=== PATIENT | female | born 1930 | race Caucasian/White ===

== ENCOUNTER 2017-06-16 10:10 | Observation (INO) ==
[2017-06-16] MEDS ORDERED: MIDAZOLAM 2mg/2ml INJECTION IVP ONE (10:22)
[2017-06-16] MEDS ORDERED: FentaNYL 100 MCG/2 ML INJECTION IVP ONE (10:22)
[2017-06-16] MEDS ORDERED: SALINE FLUSH 10ml SYRINGE IV ONE (10:22)
[2017-06-16] MEDS ORDERED: SALINE FLUSH 10ml SYRINGE ONE (10:46)
[2017-06-16] MEDS ORDERED: DiltiaZEM 25 MG/5 ML INJECTION IVP ONE (11:34)
[2017-06-16] MEDS ORDERED: DiltiaZEM Drip 125 MG in NS 100 ML IV SCH (11:45)
[2017-06-16] MEDS: APIXABAN 5 MG TABLET PO SCH ×2 (11:59→21:34)
--- NOTE | 2017-06-16 12:05 | XRay Report ---
Indication: AFib RVR XR chest 1V: Comparison: None Technique: Single AP portable upright chest Findings: Patient shows heart size is mildly prominent although central vascularity is not congested. Mediastinum is not widened. Patient does show a hiatal hernia behind the heart of moderate size. Lungs are clear. No acute bony findings identified. Impression: 1. Mild cardiac prominence without congestive changes. 2. Moderate-sized hiatal hernia. 3. No acute pulmonary findings. .
[2017-06-16] MEDS ORDERED: MIDAZOLAM 2mg/2ml INJECTION IM PRN (14:50)
[2017-06-16] MEDS ORDERED: FentaNYL 100 MCG/2 ML INJECTION IVP PRN (14:50)
[2017-06-16] MEDS ORDERED: PROMETHAZINE 25 MG INJECTION IVP PRN (15:02)
[2017-06-16] MEDS ORDERED: MAG-AL + SIM ORAL LIQUID 30ml PO PRN (15:02)
[2017-06-16] MEDS ORDERED: LORazepam 1 MG TABLET PO PRN (15:02)
[2017-06-16] MEDS ORDERED: NITROGLYCERIN 0.4 MG SUBLINGUAL TABLET SL PRN (15:02)
[2017-06-16] MEDS ORDERED: BISACODYL 10 MG SUPPOSITORY RECTALLY PRN (15:02)
[2017-06-16] MEDS ORDERED: ACETAMINOPHEN 500 MG TABLET PO PRN (15:02)
[2017-06-16] MEDS ORDERED: METOCLOPRAMIDE 10mg/2ml INJECTION IVP PRN (15:02)
--- NOTE | 2017-06-16 16:14 | Transesophageal Echocardiogram ---
TRANSESOPHAGEAL ECHOCARDIOGRAM AND CARDIOVERSION DATE OF PROCEDURE June 16, 2017 REFERRING PHYSICIAN Ankur Mary, DO INDICATIONS The patient is a pleasant 86-year-old lady who was admitted with atrial fibrillation and rapid ventricular rate of unknown duration and was referred for further evaluation by transesophageal echocardiogram to rule out intracardiac thrombus prior to cardioversion. INFORMED CONSENT Informed consent was obtained after explaining the procedure and the potential risks to the patient who agreed to proceed with the procedure. PROCEDURE 1. Transesophageal echocardiogram. 2. DC cardioversion. TECHNIQUE Conscious sedation was performed using Versed and fentanyl. Cetacaine spray was used for pharyngeal anesthesia. Probe was advanced into the esophagus and stomach and images were obtained in multiple planes. Left atrium is dilated. Left ventricle end-diastolic dimension is normal. Left ventricle wall thickness is normal. LV systolic function is normal with ejection fraction of 65%. Right atrium is normal. Right ventricle is normal. Mitral valve is morphologically normal with moderate mitral regurgitation. Aortic valve is a trileaflet structure with fibrocalcific changes with no stenosis. Mild to moderate aortic insufficiency is present. Tricuspid valve shows moderate tricuspid regurgitation. Pulmonary valve shows trace of pulmonary insufficiency. There is no pericardial effusion. There is no thrombus in left atrium, left atrial appendage or left ventricle. Agitated saline was injected which showed no evidence of [id number]-[id number] shunt. Descending thoracic aorta appears to be free of significant atherosclerosis. IMPRESSION 1. Normal LV systolic function with ejection fraction of about 65%. 2. No intracardiac thrombus or mass. 3. Left atrial dilation. 4. Moderate mitral regurgitation. 5. Aortic sclerosis with mild to moderate aortic insufficiency. 6. Moderate tricuspid regurgitation. 7. Trace of pulmonary insufficiency. 8. No evidence of zrche-st-jwfh shunt using agitated saline. PLAN Will proceed with cardioversion. After reviewing the images we decided to proceed with cardioversion. Anterior- posterior Zoll pads were applied. 360 joules of energy were delivered in synchronized manner and patient converted from atrial fibrillation to sinus rhythm. She tolerated the procedure well with no complications. IMPRESSION 1. Successful DC cardioversion of atrial fibrillation to sinus rhythm. PLAN Will keep her on anticoagulation and start antiarrhythmics to maintain sinus. [facility]
[2017-06-16] MEDS: **POM**ASPIRIN 81 MG CHEWABLE TABLET PO SCH (16:18)
[2017-06-16] MEDS: FLECAINIDE 50 MG TABLET PO SCH ×2 (16:18→21:34)
[2017-06-16] MEDS: MAGNESIUM OXIDE 400 MG PO SCH (16:19)
[2017-06-16] MEDS: RANITIDINE 150 MG PO SCH (21:34)
[2017-06-17] MEDS ORDERED: FERROUS SULFATE 325 MG PO SCH (08:00)
[2017-06-17 08:56] VITALS: BP 118/85; PULSE 79; RESP 18; TEMP 95.8; O2SAT 94
[2017-06-17] MEDS ORDERED: VIT D PO SCH (09:00)
[2017-06-17] MEDS ORDERED: CALCIUM CARBONATE PO SCH (09:00)
[2017-06-17] MEDS ORDERED: CALCIUM PO SCH (09:00)
[2017-06-17] MEDS ORDERED: [UNRECOGNIZED DRUG - OTHER] PO SCH (09:00)
[2017-06-17] MEDS ORDERED: VITAMIN D3 PO SCH (09:00)
[2017-06-17] MEDS ORDERED: [UNRECOGNIZED DRUG - OTHER] PO SCH (09:00)
[2017-06-17] MEDS ORDERED: MIRTAZAPINE 15 MG PO SCH (09:00)
[2017-06-17] MEDS: **POM**ASPIRIN 81 MG CHEWABLE TABLET PO SCH (10:05)
[2017-06-17] MEDS: RANITIDINE 150 MG PO SCH (10:06)
[2017-06-17] MEDS: SUCRALFATE 1 GM PO SCH ×2 (10:09→10:27)
[2017-06-17] MEDS: MAGNESIUM OXIDE 400 MG PO SCH (10:11)
[2017-06-17] MEDS: FLECAINIDE 50 MG TABLET PO SCH (10:13)
[2017-06-17] MEDS: APIXABAN 5 MG TABLET PO SCH (10:13)
[2017-06-17] MEDS ORDERED: SUCRALFATE 1 GM PO SCH (11:30)
--- NOTE | 2017-06-17 11:38 | Discharge Instructions ---
<Laure Vargas - Last Filed: 06/17/17 17:24> Discharge Plan - Med Rec/Dispo Referrals/Follow Up: Michael Nash MD [Physician] - 07/23/17 3:30 pm Lalitha Instructions: A-fib (Atrial Fibrillation) (DC) Prescriptions: New Apixaban [Eliquis] 5 mg PO BID #60 tablet Flecainide [Tambocor] 50 mg PO Q12HR #60 tablet Continue Aspirin 81 mg PO DAILY #0 Calcium Carbonate/Vitamin D3 (Caltrate 600 + D Chewable Tab) 1 each PO DAILY #0 Sucralfate 1 tab PO DAILY #90 Magnesium Oxide [Magnesium] 2 tab PO DAILY Folic Acid/Multivit-Min/Lutein [Centrum Silver Chewable Tablet] 1 tab PO DAILY #0 raNITIdine HCl [Ranitidine HCl] 1 tab PO BID #60 Mirtazapine 1 tab PO DAILY #30 Ferrous Sulfate [Iron] 1 tab PO DAILY #0 - Disposition 01 Discharged Home, Self-Care <Michael Nash - Last Filed: 06/18/17 13:54> Discharge Plan - Med Rec/Dispo - Attestation Attestation Narrative: 06/18/17 13:53 Recommendation After examining the patient I agree with the above assessment. I am involved in the formulation of the patient's plan of care.
== END 2017-06-17 14:53 | disposition home or self-care (01) ==
LOC: CCU → MED 06-17 07:53
PROVIDERS: ADMIT Internal Medicine Cardiovascular Disease; ATTEND Internal Medicine Cardiovascular Disease

== ENCOUNTER 2017-10-05 21:17 | Inpatient (IN) ==
--- NOTE | 2017-10-05 21:45 | Emergency Department Report ---
Weakness HPI - General Stated complaint: low hemaglobin Time Seen by Provider: 10/05/17 21:24 Source: patient, family, old records reviewed, other (Physician) Mode of arrival: ambulatory Limitations: no limitations - History of Present Illness HPI Narrative: 87yo woman presented to the ER by her son for evaluation of weakness and anemia. Pt was seen by her PCM this AM for evaluation of progressive dyspnea. Labs were ordered, but did not result until late this evening. On evaluation, pts Hb was 5.7; pt and son were contacted and referred to the ER for evaluation/ admission for treatment. Per pts son, pt has been progressively dyspneic over the last 3-4 weeks. Had labs 3 mos ago that were normal. MD Complaint: lack of energy Onset (ago): week(s) (3) Duration: constant Location: generalized Severity: moderate Relieving factors: none Exacerbating factors: movement, exertion Associated symptoms: denies other symptoms - Related Data Home Medications Medication Instructions Recorded Confirmed Aspirin 81 mg PO DAILY #0 10/14/12 10/05/17 Calcium Carbonate/Vitamin D3 1 each PO DAILY #0 10/14/12 10/05/17 (Caltrate 600 + D Chewable Tab) Folic Acid/Multivit-Min/Lutein 1 tab PO DAILY #0 12/31/12 10/05/17 [Centrum Silver Chewable Tablet] Ferrous Sulfate [Iron] 1 tab PO DAILY #0 09/12/15 10/05/17 Mirtazapine 1 tab PO DAILY #30 09/12/15 10/05/17 raNITIdine HCl [Ranitidine HCl] 1 tab PO BID #60 09/12/15 10/05/17 Magnesium Oxide [Magnesium] 2 tab PO BID 06/16/17 10/05/17 apixaban (Eliquis)5 mg tablet 5 mg PO BID 06/22/17 10/05/17 flecainide 50 mg tablet 50 mg PO Q12H 06/22/17 10/05/17 Previous Rx's Medication Instructions Recorded sucralfate 1 gram tablet 1 g PO HS #90 tab 06/29/17 Allergies Allergy/AdvReac Type Severity Reaction Status Date / Time benzocaine Allergy Unknown swell Verified 10/05/17 22:13 ciprofloxacin Allergy Unknown LEGS GOT Verified 10/05/17 22:13 STIFF ciprofloxacin HCl Allergy Unknown LEGS GOT Uncoded 10/05/17 22:13 STIFF EVISTA Allergy Uncoded 10/05/17 22:13 Review of Systems All systems: reviewed and negative except as stated Constitutional: Reports: as per HPI, weakness. Denies: fever, chills, weight change, night sweats PFSH Patient Stated Medical History Cardiac Arrhythmia Yes: A-FIB RVR SUDDEN ONSET Sleep Apnea No Gastroesophageal Reflux Yes Disease Hx Incontinence Yes: WEARS A PAD Other Yes: BLADDER CANCER Post Menopausal Yes Clinic Medical History Bladder cancer (Acute Medical) Surgical History: APPENDECTOMY . HYSTERECTOMY AND CYSTOSCOPY 02/1076. GALLBLADDER. CATARACT. HEART CATH- 2005. EYE LASER 03/2017 Family History: Family History Mother Heart failure Daughter Breast cancer Father Cancer Sister No problems noted. - Social History Smoking status: Never smoker Physical Exam - Limitations Limitations: no limitations - General General appearance: alert, in no apparent distress, obese - Normal Exams: Head:: Normocephalic without trauma Eyes:: Pupils are PERRLA w/ EOMI, No scleral icterus, irritation, or foreign bodies noted ENMT:: No facial trauma, nasal exudates, pharyngeal erythema, or exudates are noted Neck:: Full range of motion, without adenopathy Chest/Respirations:: Clear all zhu, with good airflow, and symmetry bilaterally Cardiovascular:: Regular rate and rhythm, without murmur or gallop, Pulses 2+ all extremities, capillary refill, <2 seconds all extremities Abdomen:: Bowel sounds positive, soft, non-tender, non-distended, no hepatosplenomegaly, masses or bruits noted Lymphatic:: No lymphadenopathy Musculoskeletal:: No tenderness, or deformity noted, good range of motion Integumentary:: No rashes, hives, or bruising noted Neurological:: Patient is alert, and oriented Psychiatric:: Patient exhibits, appropriate attention - Skin Skin exam: Present: warm, dry, intact, pallor. Absent: rash Course - Consultations Consultation #1: Maximiliano Telemed: Will admit for treatment and further eval. Time: 22:20 Vital Signs Temperature 98.0 F 10/05/17 21:17 Pulse Rate 99 10/05/17 21:17 Respiratory Rate 18 10/05/17 21:17 Blood Pressure 136/60 10/05/17 21:17 Pulse Oximetry 95 10/05/17 21:17 Temperature 98.0 F 11/27/17 21:17 Pulse Rate 99 10/05/17 21:17 Respiratory Rate 18 10/05/17 21:17 Blood Pressure 136/60 10/05/17 21:17 Pulse Oximetry 95 10/05/17 21:17 Weakness - Differential Diagnosis Differential diagnosis: Likely: acute myocardial infarction, anemia, hypoglycemia, hypothyroidism, rhabdomyolysis - Medical Records Attestation: I reviewed the patient's medical records. - Lab Data Attestation: I reviewed the patient's lab results. Result diagrams: 10/05/17 21:50 Lab Results 10/05/17 10/05/17 10/05/17 Range/Units 21:50 21:50 21:50 WBC 6.5 (4.5-11.0) T/MM3 RBC 1.96 L (4.00-5.20) M/MM3 Hgb 5.6 L* (12-16) GM/DL Hct 19.3 L (36-46) % MCV 98.5 (80-100) UM3 MCH 28.6 (26-34) UUG MCHC 29.0 L (31-37) GM/DL RDW Std Deviation 45.8 (36.9-50.2) FL Plt Count 373 (130-400) T/MM3 MPV 9.6 (9.4-12.4) UM3 Troponin I < 0.012 (0-0.12) ng/ml Specimen Hemolysis < 15 (0-25) Crossmatch (AHG) See Detail - EKG Data EKG #1 EKG attestation: Yes: I reviewed and interpreted this EKG. EKG shows normal: sinus rhythm, axis, QRS complexes, ST-T waves Rate: normal Evant/QRS: IVCD Disposition Clinical Impression: Anemia Qualifiers: Anemia type: unspecified type Qualified Code(s): D64.9 - Anemia, unspecified Disposition: To OBS [facility] Print Language: Turkish Condition: Improved Prescriptions: No Action Aspirin 81 mg PO DAILY #0 Calcium Carbonate/Vitamin D3 (Caltrate 600 + D Chewable Tab) 1 each PO DAILY #0 Magnesium Oxide [Magnesium] 2 tab PO BID Folic Acid/Multivit-Min/Lutein [Centrum Silver Chewable Tablet] 1 tab PO DAILY #0 raNITIdine HCl [Ranitidine HCl] 1 tab PO BID #60 Mirtazapine 1 tab PO DAILY #30 Ferrous Sulfate [Iron] 1 tab PO DAILY #0 apixaban (Eliquis)5 mg tablet 5 mg PO BID sucralfate 1 gram tablet 1 g PO HS #90 tab flecainide 50 mg tablet 50 mg PO Q12H Time of Disposition: 22:25 - Seen By: physician
[2017-10-05] MEDS: SALINE FLUSH 10ml SYRINGE IVF PRN (21:50)
[2017-10-05] MEDS ORDERED: ONDANSETRON 4 MG/2 ML INJECTION IVP PRN (23:14)
[2017-10-05 23:27] VITALS: BMI 28.0
[2017-10-05] MEDS: NS 1,000 ML IV SCH (23:58)
--- NOTE | 2017-10-06 00:03 | History & Physical Report ---
History of Present Illness Date: 10/06/17 Chief complaint: weak HPI: Please note that the patient was seen via telemedicine with nursing assistance on 10/05/2017. Ms. Graham is an 87yo woman with h/o permanent afib, HTN, GERD and PUD but no CAD , CVA or DM2. She present with progressive weakness over the last couple of weeks with CABAN and palpitation with activity. NO chest pain on abdominal pain. No recent medication changes. Clinic lab with anemia and sent to the ED. No stool changes. Never had endoscopy per son at the bedside who is an RN--PUD diagnosed previously by symptoms. No other NSAIDs noted. [facility] Patient Stated Medical History Cardiac Arrhythmia Yes: A-FIB RVR SUDDEN ONSET Sleep Apnea No Gastroesophageal Reflux Yes Disease Hx Incontinence Yes: WEARS A PAD Other Yes: BLADDER CANCER Post Menopausal Yes Clinic Medical History Anemia (Acute Medical) Bladder cancer (Acute Medical) Surgical History: APPENDECTOMY . HYSTERECTOMY AND CYSTOSCOPY 02/1076. GALLBLADDER. CATARACT. HEART CATH- 2005. EYE LASER 03/2017 Family History: Family History Mother Heart failure Daughter Breast cancer Father Cancer Sister No problems noted. - Social History Smoking status: Never smoker Substance use type: does not use Housing: house Medications Home Medications Medication Instructions Recorded Confirmed Type Aspirin 81 mg PO DAILY #0 10/14/12 10/05/17 History Calcium Carbonate/Vitamin D3 1 each PO DAILY #0 10/14/12 10/05/17 History (Caltrate 600 + D Chewable Tab) Folic Acid/Multivit-Min/Lutein 1 tab PO DAILY #0 12/31/12 10/05/17 History [Centrum Silver Chewable Tablet] Ferrous Sulfate [Iron] 1 tab PO DAILY #0 09/12/15 10/05/17 History Mirtazapine 1 tab PO HS #30 09/12/15 10/06/17 History raNITIdine HCl [Ranitidine HCl] 1 tab PO BID #60 09/12/15 10/05/17 History Magnesium Oxide [Magnesium] 2 tab PO BID 06/16/17 10/05/17 History apixaban (Eliquis)5 mg tablet 5 mg PO BID 06/22/17 10/05/17 History flecainide 50 mg tablet 50 mg PO Q12H 06/22/17 10/05/17 History Allergies Allergy/AdvReac Type Severity Reaction Status Date / Time benzocaine Allergy Unknown swell Verified 10/05/17 22:13 ciprofloxacin Allergy Unknown LEGS GOT Verified 10/05/17 22:13 STIFF ciprofloxacin HCl Allergy Unknown LEGS GOT Uncoded 10/05/17 22:13 STIFF EVISTA Allergy Uncoded 10/05/17 22:13 Exam Vital Signs: Temperature 95.8 F L 10/05/17 23:12 Pulse Rate 97 10/05/17 23:12 Respiratory Rate 16 10/05/17 23:12 Blood Pressure 154/71 H 10/05/17 23:12 Pulse Oximetry 98 10/05/17 23:12 Telemetry Rhythm: A-fib Height/Weight/BMI: Height 1.57 m Weight 69.7 kg Body Mass Index 28.0 - Constitutional Present: no acute distress - Routine HEENT Exam Eye: Present: EOMI - Routine Respiratory Exam Present: CTA bilaterally. Absent: accessory muscle use, respiratory distress - Routine Cardiovascular Exam Absent: RRR Comments: irr irr with no murmur, no edema, borderline tachycardic - Routine Abdominal Exam Present: soft, normoactive bowel sounds. Absent: tenderness - Routine Extremities Exam Absent: cyanosis, clubbing - Routine Skin Exam Present: intact - Routine Neurological Exam Present: alert, oriented X3, CN II-XII intact Results - Labs CBC & Chem 7: 10/06/17 07:05 10/06/17 07:05 Assessment and Plan (1) Normocytic anemia Current visit: Yes Status: Acute (2) Atrial fibrillation Current visit: Yes Status: Acute (3) GERD (gastroesophageal reflux disease) Current visit: Yes Status: Acute Assessment and Plan: 1. Normocytic anemia, symptomatic--2 units PRBCs, iron, TIBC, other labs with PPI and will need EGD most likely with 2. 2. Permanent afib on asa and eliquis which will be held. Continue Flecainide. 3. GERD and possible PUD hx. As above. No NSIADs. 4. DJD 10/06/2017-Dr. Toure I have reviewed the H&P above and agree. Please see my additions below. Chief complaint: Shortness of breath and palpitations with activity History of present illness: The patient is a pleasant 87-year-old female who states that she has had palpitations and shortness of breath with activity for at least the past couple of weeks. She has history of A. fib and underwent AYDEN and possible cardioversion back in June 2017. At that time she was started on aspirin and eliquis. She has had dark stools but is on iron. She denies any nausea or vomiting. She denies any abdominal pain. She has a history of possible peptic ulcer disease diagnosed by symptoms. She has been on an H2 leticia and Carafate for an unknown period of time. She does not take any NSAIDs other than an aspirin once daily. She denies any lightheadedness or chest pain. She has some right shoulder pain with movement. She's had no weight changes. She denies any fevers, chills or sweats. She states her appetite has been good. She does complain of some right shoulder pain with movement. On examination her pain is actually in the right shoulder blade area. The patient presented to her primary care office yesterday because of palpitations and shortness of breath. Hemoglobin was found to be low at 5.6. She was directed to be admitted to the hospital. She received 2 units of blood. Hemoglobin is now 8.7. Combivent some metabolic is essentially normal. In early June 2017 her hemoglobin was 11.6. She last took a look was at 6 PM yesterday. Comprehensive review of systems is negative other than the above in history of present illness. Past medical history: Reviewed from above and agree. Would add AYDEN with cardioversion in June 2017. Past surgical history: Reviewed and agree. Family history and social history review and agree. The patient lives alone. Her son Tonya is her DPOA. Medications and allergies are reviewed. Physical exam GEN-alert, oriented, no acute distress HEENT-sclera anicteric, pupils are equal, oropharynx is moist NECK-supple CV-regular rate and rhythm CHEST-clear to auscultation bilaterally ABD-soft, nontender, nondistended with positive bowel sounds -no Jaime EXT-no edema, good range of motion of the right shoulder NEURO-no focal deficits SKIN-warm and dry and without rashes Impression Anemia, likely from blood loss Probable upper GI bleed Chronic anticoagulation for atrial fibrillation Paroxysmal atrial fibrillation History of bladder cancer in remission Plan Agree with admission to inpatient status. Patient was transfused 2 units of blood and hemoglobin has improved. Will obtain every 6 hours hemoglobins. Continue on IV proton pump inhibitor twice daily. Continue nothing by mouth status. Dr. Garcia was consulted and will see the patient for possible EGD later today. Continue to hold aspirin and eliquis Recheck basic metabolic profile tomorrow SCDs for DVT prophylaxis Iron studies, B-12, folic acid Hemoccult stools DVT Prophylaxis: SCD's Hospital Course Summary Disclaimer: The visit summary below is not to be considered part of the above Progress Note.
[2017-10-06] MEDS ORDERED: NS FLUSH BAG 500ml IV PRN (00:07)
[2017-10-06] MEDS: FLECAINIDE 50 MG TABLET PO SCH ×3 (00:33→23:52)
[2017-10-06] MEDS: MIRTAZAPINE 15 MG TABLET PO SCH ×2 (00:33→20:36)
[2017-10-06] MEDS: PANTOPRAZOLE 40 MG INJECTION IVP SCH ×2 (03:31→09:05)
[2017-10-06] MEDS ORDERED: MIRTAZAPINE 15 MG TABLET PO SCH (09:00)
[2017-10-06] MEDS: ACETAMINOPHEN 500 MG TABLET PO PRN ×2 (10:27→20:59)
[2017-10-06] MEDS: NS 1,000 ML IV SCH ×2 (14:51→20:40)
--- NOTE | 2017-10-06 15:50 | Anesthesia Preoperative Report ---
Anesthesia Preoperative Record - Date and Time Date: 10/06/17 Preoperative Diagnosis: Anemia Proposed Procedure: EGD NPO Since Date: 10/06/17 NPO Since Time: 00:00 Allergies/Adverse Reactions: Allergies Allergy/AdvReac Type Severity Reaction Status Date / Time benzocaine Allergy Unknown swell Verified 10/05/17 22:13 ciprofloxacin Allergy Unknown LEGS GOT Verified 10/05/17 22:13 STIFF ciprofloxacin HCl Allergy Unknown LEGS GOT Uncoded 10/05/17 22:13 STIFF EVISTA Allergy Uncoded 10/05/17 22:13 - Vital Signs Vital Signs: Temperature 97.7 F 10/06/17 14:46 Pulse Rate 75 10/06/17 14:46 Respiratory Rate 20 10/06/17 14:46 Blood Pressure 138/64 10/06/17 14:46 Pulse Oximetry 95 10/06/17 14:46 Height and Weight: Height 5 ft 2 in Weight 70 kg Body Mass Index 28.0 - Medications Inpatient Medications: Current Medications Acetaminophen (Tylenol) 1,000 mg PO Q5H PRN PRN Reason: Discomfort Last Admin: 10/06/17 10:27 Dose: 1,000 mg Flecainide Acetate (Tambocor) 50 mg PO Q12H MINNA Last Admin: 10/06/17 12:19 Dose: 50 mg Sodium Chloride (Normal Saline) 1,000 mls @ 100 mls/hr IV .Q10H MINNA Last Admin: 10/06/17 14:51 Dose: 100 mls/hr Mirtazapine (Remeron) 15 mg PO HS MINNA Last Admin: 10/06/17 00:33 Dose: 15 mg Ondansetron HCl (Zofran) 4 mg IVP Q6H PRN PRN Reason: Nausea &/or vomiting Pantoprazole Sodium (Protonix Iv) 40 mg IVP BID MINNA Last Admin: 10/06/17 09:05 Dose: 40 mg Sodium Chloride (Iv Flush) 10 - 80 ml IVF PRN PRN PRN Reason: Flushing Last Admin: 10/05/17 21:50 Dose: 10 ml Sodium Chloride (Normal Saline) 500 ml IV PRN PRN Home Medications: Home Medications Medication Instructions Recorded Confirmed Type Aspirin 81 mg PO DAILY #0 10/14/12 10/05/17 History Calcium Carbonate/Vitamin D3 1 each PO DAILY #0 10/14/12 10/05/17 History (Caltrate 600 + D Chewable Tab) Folic Acid/Multivit-Min/Lutein 1 tab PO DAILY #0 12/31/12 10/05/17 History [Centrum Silver Chewable Tablet] Ferrous Sulfate [Iron] 1 tab PO DAILY #0 09/12/15 10/05/17 History Mirtazapine 1 tab PO HS #30 09/12/15 10/06/17 History raNITIdine HCl [Ranitidine HCl] 1 tab PO BID #60 09/12/15 10/05/17 History Magnesium Oxide [Magnesium] 2 tab PO BID 06/16/17 10/05/17 History apixaban (Eliquis)5 mg tablet 5 mg PO BID 06/22/17 10/05/17 History flecainide 50 mg tablet 50 mg PO Q12H 06/22/17 10/05/17 History Is Patient on Beta Ralf?: No - Medical History Cardiovascular: Reports: Abnormal EKG (A-Fib), Arrhythmia (A-FIB RVR SUDDEN ONSET) Gastrointestional: Reports: Gastroesophageal Reflux Disease (reports well controlled on meds) Neuro/Musculoskeletal: Denies: HX.MS.OSAR, Back Problems, Cerebrovascular Accident, Depression, Headaches, Loss of Consciousness, Muscle Weakness, Neuromuscular Disorder, Paralysis, Paresthesia, Syncope, Seizures, Other Renal/Endocrine: DENIES: Diabetes Mellitus Type 1, Diabetes Mellitus Type 2, Renal Failure, Dialysis, Thyroid Disease, Weight Loss, Weight Gain, Other Other History: DENIES: Anesthesia Reactions, Now, Blood Transfusions, Chemotherapy , Cancer, Hemophilia, Malignant Hyperthermia, Sickle Cell Disease, Other - Surgical History HEENT Surgeries: Reports: Eye Surgery Cardiac Surgeries/Treatments: Reports: Cardiac Catheterization (2006- Clean/no intervention), Other (cardioversion) GI Surgery/Treatments: Reports: Appendectomy Anesthesia Reactions: None Hx Family Anesthesia Reaction: No History of Motion Sickness: No - Social History Smoking Status: Never smoker Substance Use Type: does not use Alcohol Intake: never - Pertinent Findings Laboratory: CBC and BMP 10/06/17 13:06 10/06/17 07:05 BMP 10/06/17 07:05 Sodium 140 Potassium 3.9 Chloride 107 Carbon Dioxide 26 BUN 15.0 Creatinine 0.8 Glucose 85 Calcium 8.4 Liver Function 10/06/17 Range/Units 07:05 Total Bilirubin 0.60 (0.20-1.30) MG/DL AST 20 (14-36) U/L ALT 19 (9-52) U/L Alkaline Phosphatase 53 (38-126) U/L Albumin 3.4 L (3.5-5.0) G/DL EKG: Sinus Rhythm - Physical Exam Respiratory Exam: Present: lungs clear, bilateral breath sounds equal Cardiovascular Exam: Present: regular rate and rhythm, no murmur - Airway Assessment Mallampati Score: II TMD: 3 Fingerbreadths Neck Extension: fair Overall Assessment: no airway concerns - ASA ASA Score: 2 - Plan Anesthesia: General TIVA - Discussion Discussion: Discussed risks/options/alternatives of anesthesia and questions answered. Patient consents. Nursing pain assessment noted. Present for Discussion: children Attestation Statement: Prior to the delivery of any anesthetic medication, I examined the patient, developed the plan, obtained the patient's consent and discussed the risk and benefits of the procedure with the patient/guardian. - Additional Information Seen by Anesthesia: Yes
[2017-10-06] MEDS ORDERED: LIDOCAINE VISCOUS 2% ORAL LIQUID 15ml ONE (16:22)
[2017-10-06] MEDS ORDERED: LIDOCAINE VISCOUS 2% ORAL LIQUID 15ml PO ONE (16:50)
--- NOTE | 2017-10-06 17:27 | Procedure Note ---
- Procedure Date/Time: [id number] Surgeon: Radha ASA Score: 2 Proceure: EGD for renan assay, EGD- antrum biopsies - Postoperative EGD Diagnosis Postoperative EGD Diagnosis: Hiatal hernia (sliding), Other (Shankar ulcer) - Complications Estimated Blood Loss: See Anesthesia Record. Vital Signs: See Anesthesia and PACU record.
--- NOTE | 2017-10-06 17:30 | General Surgery Consult Note ---
Consult date: 10/06/17 Attending Physician: Kaitlin Toure MD Reason for consult: endoscopy FOR[facility] Patient Stated Medical History Cerebrovascular Accident No Paralysis No Seizures No Syncope No Cardiac Arrhythmia Yes: A-FIB RVR SUDDEN ONSET Sleep Apnea No Diabetes Mellitus Type 1 No Diabetes Mellitus Type 2 No Gastroesophageal Reflux Yes: reports well controlled on meds Disease Hx Incontinence Yes: WEARS A PAD Other Yes: BLADDER CANCER Osteoarthritis No Other Musculoskeletal No Anesthesia Reactions No Blood Transfusions No Chemotherapy No Malignant Hyperthermia No Other No Depression No Post Menopausal Yes Now No Clinic Medical History Anemia (Acute Medical) Normocytic anemia (Acute Medical) Atrial fibrillation (Acute Medical) GERD (gastroesophageal reflux disease) (Acute Medical) Bladder cancer (Acute Medical) Surgical History: APPENDECTOMY . HYSTERECTOMY AND CYSTOSCOPY 02/1076. GALLBLADDER. CATARACT. HEART CATH- 2005. EYE LASER 03/2017 Family History: Family History Mother Heart failure Daughter Breast cancer Father Cancer Sister No problems noted. - Social History Smoking status: Never smoker Medications Home Medications Medication Instructions Recorded Confirmed Type Aspirin 81 mg PO DAILY #0 10/14/12 10/05/17 History Calcium Carbonate/Vitamin D3 1 each PO DAILY #0 10/14/12 10/05/17 History (Caltrate 600 + D Chewable Tab) Folic Acid/Multivit-Min/Lutein 1 tab PO DAILY #0 12/31/12 10/05/17 History [Centrum Silver Chewable Tablet] Ferrous Sulfate [Iron] 1 tab PO DAILY #0 09/12/15 10/05/17 History Mirtazapine 1 tab PO HS #30 09/12/15 10/06/17 History raNITIdine HCl [Ranitidine HCl] 1 tab PO BID #60 09/12/15 10/05/17 History Magnesium Oxide [Magnesium] 2 tab PO BID 06/16/17 10/05/17 History apixaban (Eliquis)5 mg tablet 5 mg PO BID 06/22/17 10/05/17 History flecainide 50 mg tablet 50 mg PO Q12H 06/22/17 10/05/17 History Allergies Allergy/AdvReac Type Severity Reaction Status Date / Time benzocaine Allergy Unknown swell Verified 10/05/17 22:13 ciprofloxacin Allergy Unknown LEGS GOT Verified 10/05/17 22:13 STIFF ciprofloxacin HCl Allergy Unknown LEGS GOT Uncoded 10/05/17 22:13 STIFF EVISTA Allergy Uncoded 10/05/17 22:13 Review of Systems 10-point ROS: negative except for HPI and the following: - General General: Present: other (weakness) - Cardiovascular Cardiovascular: Present: irregular heart beat - Gastrointestinal Gastrointestinal: Present: other (see HPI) - Genitourinary Females Only: Present: other (incontinence) - Musculoskeletal Musculoskeletal: Present: joint pain - Neurological Neurological: Present: muscle weakness - Hematologic/Lymphatic Hematologic/Lymphatic: Present: easy bruising, use of blood thinners - Vital Signs Last Vital Signs Temp 97.7 F 10/06/17 14:46 Pulse 75 10/06/17 14:46 Resp 20 10/06/17 14:46 BP 138/64 10/06/17 14:46 Pulse Ox 95 10/06/17 14:46 - Laboratory Result Diagrams: 10/06/17 13:06 10/06/17 07:05 General Surgery Results - Results Labs: 10/06/17 13:06 10/06/17 07:05 Hospital Course Summary Disclaimer: The visit summary below is not to be considered part of the above Progress Note.
[2017-10-06] MEDS ORDERED: PROPOFOL 500 MG/50 ML VIAL IV ONE (17:33)
--- NOTE | 2017-10-06 17:50 | Anesthesia Postoperative Note ---
- Date and Time Date: 10/06/17 Time: 17:49 - Status Patient Participated in Evaluation: Patient Participated in Person Vital Signs: Temperature 97.2 F 10/06/17 17:30 Pulse Rate 77 10/06/17 17:45 Respiratory Rate 18 10/06/17 17:45 Blood Pressure 118/59 10/06/17 17:45 Pulse Oximetry 93 10/06/17 17:45 Respiratory Function: Airway Patent Cardiovascular Function: Regular Pulse EKG: Sinus Rhythm Mental Status: Alert and Oriented Pain Intensity: 0 Hydration: IV Infusing Complications During Recover: None Apparent - Follow-Up Instructions Instructions: Per Surgeon
--- NOTE | 2017-10-06 18:32 | Consultation ---
DATE OF CONSULTATION 10/06/2017 FINDINGS Mrs. Graham is an 87-year-old female whom I was asked to see today as a result of her finding of marked anemia upon laboratory evaluation. Upon questioning Mrs. Graham, she informs me that over the last several weeks or more she has been feeling more weak and fatigued. She states that she had noted that she was becoming more short of breath with any type of exertion. She states that she "lost all of her energy." Patient states that her son is a registered nurse and had recommended that she needed to see her physician as a result of this decompensation. After presenting to her PCP's office she was found to have marked anemia and was subsequently instructed to present to our emergency room here at [facility] for further evaluation. Upon questioning the patient, she denies any history for significant abdominal pain or discomfort. She denies any history for alcohol intake. She denies any history for significant nonsteroidal use such as aspirin or ibuprofen. The patient's son, whom I spoke with by phone this morning, informed me that his mother had been diagnosed in the past clinically with a possible ulcer and that she has been on some "antiulcer medication" in the past. Upon questioning the patient, she states that she has never undergone prior colonoscopy or EGD. She states that she has been on some iron supplementation and has noted that her stools are somewhat more dark in nature, as one would expect. PAST MEDICAL HISTORY, PAST SURGICAL HISTORY, MEDICATIONS, ALLERGIES, SOCIAL HISTORY, FAMILY HISTORY, REVIEW OF SYSTEMS Performed by my nurse practitioner, George Rome APRN. PHYSICAL EXAM GENERAL: Mrs. Graham is an elderly 87-year-old female who does not appear to be in acute distress. VITAL SIGNS: Temperature 96.0, pulse 79, respirations 16, blood pressure 137/67 , Soa2 95% on room air. HEENT: Normocephalic. Pupils are equally round and react to light and accommodation. NECK: Supple without lymphadenopathy. CHEST: Clear to auscultation bilaterally. HEART: Regular rate and rhythm. Normal S1 and S2 without gallops, murmurs or clicks. ABDOMEN: Palpation of the abdomen reveals it to be soft and nontender. I do not appreciate any evidence for hepatosplenomegaly nor abnormal masses. EXTREMITIES: Without clubbing, cyanosis, or edema. NEURO: Cranial nerves II-XII grossly intact. Patient is without focal motor or sensory deficits. LABORATORY/RADIOGRAPHIC EVALUATION The patient had a CBC yesterday through the emergency room and her hemoglobin is 5.6. She has undergone blood transfusions and her hemoglobin today is 8.7. The patient did have iron studies obtained and results are pending at time of dictation. She was found to have a Hemoccult-positive stool earlier today. ASSESSMENT 87-year-old female with associated medical comorbidities who is found to be markedly anemic upon laboratory evaluation in conjunction with heme-positive stool. PLAN I agree with current management of this patient. She has been admitted to the hospital and has undergone blood transfusions, as stated above. She is being treated empirically for peptic ulcer disease and is on IV Protonix. I would recommended at this point in time that later today we proceed with esophagogastroduodenoscopy for further evaluation to rule in or rule out an upper GI source for her anemia. The patient has been on Eliquis and it has been roughly 24 hours since her last dose. I do feel it is safe to proceed with upper endoscopy. If no marked abnormalities are noted upon upper endoscopy to explain the patient's anemia, would then recommend proceeding with colonoscopy for further evaluation. I did discuss my recommendations with the patient as well as her son, who is a registered nurse, by phone this morning. They both understood and agreed to proceed as stated above. SANDEEP
[2017-10-06] MEDS: SUCRALFATE 1gm/10ml ORAL LIQUID PO SCH ×2 (18:42→20:36)
[2017-10-07] MEDS: PANTOPRAZOLE 40 MG TABLET PO SCH (06:15)
[2017-10-07] MEDS: NS 1,000 ML IV SCH (06:15)
[2017-10-07] MEDS: SUCRALFATE 1gm/10ml ORAL LIQUID PO SCH ×4 (06:19→21:09)
--- NOTE | 2017-10-07 07:36 | Operative Note ---
DATE OF SERVICE 10/06/2017 SURGEON Power Garcia MD PREOPERATIVE DIAGNOSIS Anemia, heme-positive stools. POSTOPERATIVE DIAGNOSIS Hiatal hernia, Shankar/gastric ulcerations located at the level of the diaphragm. PROCEDURE Esophagogastroduodenoscopy with biopsies from antrum of stomach for permanent pathology as well as for GEORGINA assay via cold biopsy technique. ANESTHESIA TIVA BRIEF HISTORY/INDICATIONS Mrs. Graham is an 87-year-old female who recently presented to her primary care physician as a result of increasing shortness of breath upon exertion, increasing generalized fatigue. The patient underwent laboratory evaluation and was found be quite anemic with a hemoglobin of 5.6. The patient was subsequently sent to [facility] Emergency Room for further evaluation and admission. The patient, this morning, underwent Hemoccult card testing was found to have Hemoccult positive stool. As a result of the above indications it was recommended to the patient that she undergo esophagogastroduodenoscopy initially for evaluation of the underlying etiology for her anemia. For completeness please refer to notes included in the patient' s chart. FINDINGS Upon upper endoscopy the patient was found to have an 8-10 cm hiatal hernia. At the level of the diaphragm the patient was found to have two "blood clots" sitting upon the mucosa. Blood clots were irrigated off of the mucosa. One could see two superficial ulcerations at this location. Otherwise, the esophagus, stomach and duodenum were within normal limits. DESCRIPTION OF PROCEDURE After informed consent was obtained, the patient was brought to the endoscopy suite and placed on the table in left lateral decubitus position. Formal time- out was then completed. Next, an Olympus gastroscope was inserted in the oral hypopharynx and subsequently into the esophagus under direct visualization. Gastroscope was advanced through the esophagus, stomach, pylorus, duodenal bulb , into second portion of duodenum. Scope was slowly withdrawn. First and second portions of the duodenum were within normal limits. There was no evidence of duodenitis or ulcerations. Scope was withdrawn back to prepyloric region and antrum. Again, no marked mucosal abnormalities were noted. A J- maneuver was then performed. One could see a moderate-sized hiatal hernia. Additionally, at the level of the diaphragm/crura one could see two clots sitting upon the mucosa. Photos were obtained for documentation purposes. These blood clots were irrigated off and one could then see two superficial ulcerations. There was some minimal oozing of blood at this location but no significant bleeding was present. Scope was then allowed to straighten and advanced back into the prepyloric region. It was elected to go ahead and proceed with a few biopsies from the antrum for permanent pathology as well as for GEORGINA assay to rule in or rule out the presence of H. pylori. Scope was withdrawn back to the level of the diaphragm. One could then again see the small superficial ulcerations at this location. Scope was then advanced back into the hiatal hernia. No additional abnormalities were noted. Scope was withdrawn back to the level of the squamocolumnar junction which was about 8- 10 cm above the level of the diaphragm. Squamocolumnar junction was well demarcated with no endoscopic evidence for Whalen's metaplasia or distal esophagitis. Scope was then slowly withdrawn and the remaining esophageal mucosa was found within normal limits. The patient tolerated the procedure without difficulty and was sent back to the preop area in stable condition. SANDEEP
[2017-10-07] MEDS ORDERED: IRON - PHARMACY CONSULT MC ONE (10:10)
--- NOTE | 2017-10-07 10:17 | Progress Note ---
- Date 10/07/17 Subjective: The patient was seen this morning in her room. She ate a regular breakfast without difficulties. She walked in the halls and stated she was a little bit short of breath but not to the severity that she noticed prior to admission. She denied any lightheadedness or chest pains. She had a bowel movement today. There was no gross red blood. She is urinating okay. Objective Vital signs: Temperature 97.9 F 10/07/17 07:23 Pulse Rate 80 10/07/17 07:23 Respiratory Rate 24 10/07/17 07:23 Blood Pressure 136/65 10/07/17 07:23 Pulse Oximetry 92 10/07/17 07:23 Height/Weight/BMI: Height 1.57 m Weight 72.7 kg Body Mass Index 28.0 Comments: GEN-alert, oriented, no acute distress HEENT-anicteric, oropharynx is moist CV-regular rate and rhythm CHEST-to auscultation bilaterally ABD-soft, nontender with positive bowel sounds -no Jaime EXT-no edema NEURO-no focal deficits SKIN-warm and dry and without rashes Results - Labs CBC & Chem 7: 10/07/17 07:23 10/07/17 04:35 Labs: Laboratory Tests 10/06/17 07:05 Iron 36 L TIBC 425 % Saturation 8 L Vitamin B12 392 Folate > 20.0 H Assessment and Plan (1) Normocytic anemia Current visit: Yes Status: Acute (2) Atrial fibrillation Current visit: Yes Status: Acute (3) GERD (gastroesophageal reflux disease) Current visit: Yes Status: Acute Assessment and Plan: Impression Acute blood loss anemia-improved post 2 units of packed red cells. Iron deficiency anemia Upper GI bleed secondary to gastric ulcers Sliding hiatal hernia Chronic anticoagulation for atrial fibrillation-aspirin and eliquis are on hold Paroxysmal atrial fibrillation History of bladder cancer in remission Plan EGD on 10/06/2017 showed a sliding hiatal hernia and to gastric ulcers in the area of her hiatal hernia. Biopsies were obtained and are pending. H pylori testing is pending. Hemoglobin is 7.9 today. It was 5.6 on admission. The patient received 2 units of packed red cells on the night of admission. Increase activity as tolerated. Give IV iron today for iron deficiency Start oral B 12 for borderline low B-12 level Recheck CBC and basic metabolic profile tomorrow Possible dismissal to home tomorrow if she continues to do well. Continue to remain off of aspirin and anticoagulants due to acute GI bleed Oral PPI and Carafate initiated yesterday. DC IV fluids Discussed plans with the patient's nurse. Discussed EGD results yesterday with Dr. Garcia Hospital Course Summary Disclaimer: The visit summary below is not to be considered part of the above Progress Note. Hospital Course: 10/06/2017-Dr. Toure Impression Anemia, likely from blood loss Probable upper GI bleed Chronic anticoagulation for atrial fibrillation Paroxysmal atrial fibrillation History of bladder cancer in remission Plan Agree with admission to inpatient status. Patient was transfused 2 units of blood and hemoglobin has improved. Will obtain every 6 hours hemoglobins. Continue on IV proton pump inhibitor twice daily. Continue nothing by mouth status. Dr. Garcia was consulted and will see the patient for possible EGD later today. Continue to hold aspirin and eliquis Recheck basic metabolic profile tomorrow SCDs for DVT prophylaxis Iron studies, B-12, folic acid Hemoccult stools
[2017-10-07] MEDS: FLECAINIDE 50 MG TABLET PO SCH ×2 (11:34→23:02)
[2017-10-07] MEDS: MULTI-VITAMIN + MINERAL TABLET PO SCH (11:34)
[2017-10-07] MEDS ORDERED: NS 1,000 ML IV SCH (14:00)
--- NOTE | 2017-10-07 14:08 | Pharmacy Consult ---
Pharmacy Consult-Iron - Laboratory Information [facility] 10/06/17 10/06/17 10/06/17 07:05 07:05 07:05 Hgb 8.7 L D Cancelled Hct 28.3 L D Iron 36 L TIBC 425 % Saturation 8 L 10/06/17 10/06/17 10/07/17 13:06 18:41 01:11 Hgb 8.0 L 8.4 L 7.5 L Hct Iron TIBC % Saturation 10/07/17 10/07/17 04:35 07:23 Hgb 7.8 L 7.9 L Hct 25.3 L Iron TIBC % Saturation - Consult Information IV IRON CONSULT: 87 yo FEMALE WITH COMBINATION OF ANEMIA DUE TO BLOOD LOSS AND BEING ON ANTICOAGULANT MEDICATIONS. Dx: Acute anemia 2* to blood loss: Today's hct = 25.3 Total calculated dose = 1450 MG Will give 25mg IV test dose. Watch VS q15min x 1 hr. (Watching for anaphylaxis, respiratory distress, hives) If no reaction, will give remainder of dose = 1425 MG Watch VS q15min x 1 hr. Dx: Chronic Anemia: Will give TDI (Total Dose Infusion) over 4 hours. Actual body weight = 72.7 kg IBW = 50.1 kg Hgb Level = 7.9 g/dL Calculated Dosing weight = 50.1 kg Total dose needed: 1450 mg (29 mL) Will give test dose of 25mg IV push over 30 seconds. Watch VS q 15 minutes x 1 hr. (watching for anaphylaxis, respiratory distress, hives.) If no reaction will give full dose in NS 500ml TRA 125ml/hr. Watch VS q 1 hr during infusion. Thank you. Marion Ronquillo, PharmD
[2017-10-07] MEDS ORDERED: IRON DEXTRAN COMPLEX 100mg/2ml INJECTION IV ONE (14:15)
[2017-10-07] MEDS ORDERED: NS IV ONE (15:00)
[2017-10-07] MEDS ORDERED: IRON DEXTRAN IV ONE (15:00)
--- NOTE | 2017-10-07 19:13 | Progress Note ---
DATE OF SERVICE 10/07/2017 FINDINGS Mrs. Graham was seen earlier today on morning rounds. This morning she was in good spirits. She denied any element of abdominal pain. PHYSICAL EXAM VITAL SIGNS: Afebrile, normotensive. Last recorded vitals include temperature 98.0, pulse 79, respirations 24, blood pressure 130/60, SAO2 95% on room air. HEENT: Normocephalic. Pupils are equally round and react to light and accommodation. CHEST: Clear to auscultation bilaterally. HEART: Regular rate and rhythm. Normal S1 and S2 without gallops, murmurs or clicks. ABDOMEN: Palpation of the abdomen reveals it to be soft and nontender. I do not appreciate any evidence for hepatosplenomegaly nor abnormal masses. LABORATORY/RADIOGRAPHIC EVALUATION The patient had a CBC and her hemoglobin had drifted slightly down from 8.4 to 7.9. White count is stable at 8.4. ASSESSMENT 87-year-old female with finding of marked anemia upon laboratory evaluation. Status post EGD with finding of gastric ulcerations involving hiatal hernia. PLAN I did review her GEORGINA assay results. These are still pending. I reviewed note performed by hospitalist earlier today. I informed the patient that at this time I recommend that we continue with ongoing treatment for her newly discovered gastric ulcers utilizing Carafate and PPI. Will await her H. pylori results and proceed accordingly. If the patient's hemoglobin remains stable she will likely be discharged tomorrow. [facility]
[2017-10-07] MEDS: MIRTAZAPINE 15 MG TABLET PO SCH (21:09)
[2017-10-07] MEDS: MAGNESIUM OXIDE 400 MG TABLET PO SCH (21:09)
[2017-10-07] MEDS: ACETAMINOPHEN 500 MG TABLET PO PRN (23:02)
[2017-10-08] MEDS: PANTOPRAZOLE 40 MG TABLET PO SCH (05:50)
[2017-10-08] MEDS: SUCRALFATE 1gm/10ml ORAL LIQUID PO SCH ×4 (05:50→21:00)
[2017-10-08] MEDS ORDERED: FUROSEMIDE 20 MG/2 ML INJECTION IVP ONE (08:17)
[2017-10-08] MEDS: MAGNESIUM OXIDE 400 MG TABLET PO SCH ×2 (09:05→20:59)
[2017-10-08] MEDS: MULTI-VITAMIN + MINERAL TABLET PO SCH (09:06)
--- NOTE | 2017-10-08 09:06 | XRay Report ---
Indication: wheezing, crackles PROCEDURE: XR chest 1V: Encounter: Initial Comparison: June 16, 2017 Findings: New obscuration of left hemidiaphragm and suggestion of a small left pleural effusion. Possible trace right effusion. No pneumothorax. Heart size and mediastinal contours are stable. Large hiatal hernia. Pulmonary vascularity is more prominent than the comparison study. Impression: Mild pulmonary edema with small effusions. .
--- NOTE | 2017-10-08 09:22 | Progress Note ---
<EmmanuelArcelia D - Last Filed: 10/08/17 09:18> - Date 10/08/17 Subjective: Mrs. Graham's RN reported wheezing, b/l crackles, and weight gain. The patient denied feeling short of breath, but states that she developed a cough, which is new. She denied fevers or chills or chest pain but notes some right axillary pain that has been present since before admission - she thinks she reached too high and pulled a muscle. She hasn't noticed any leg swelling. She hasn't been out of bed yet this am to assess for lightheadedness/dizziness. She's maintaining sats around 90-92% on room air, whereas yesterday she was 95%+. Objective Vital signs: Temperature 98.2 F 10/08/17 08:19 Pulse Rate 85 10/08/17 08:19 Respiratory Rate 18 10/08/17 08:19 Blood Pressure 148/65 H 10/08/17 08:19 Pulse Oximetry 92 10/08/17 08:19 Height/Weight/BMI: Height 1.57 m Weight 75.2 kg Body Mass Index 28.0 - Constitutional Present: no acute distress, well nourished, well developed - Routine HEENT Exam Head: Present: normocephalic Eye: Absent: conjunctival icterus ENT: Present: oropharynx clear - Routine Respiratory Exam Present: wheezes, crackles (b/l bases) - Routine Cardiovascular Exam Present: RRR, S1, S2 - Routine Abdominal Exam Present: soft, normoactive bowel sounds, non distended, non tender - Routine Extremities Exam Present: no edema, pulses intact - Routine Back/Spine/Pelvis Exam Back/Spine: Present: full ROM - Routine Musculoskeletal Exam Musculoskeletal: Present: no clubbing or cyanosis, other (SCDs b/l) - Routine Skin Exam Present: intact, dry, warm - Routine Neurological Exam Present: alert, oriented X3, normal speech - Routine Psychiatric Exam Present: normal affect, normal thought process, cooperative Results - Labs CBC & Chem 7: 10/08/17 04:26 10/08/17 04:26 Microbiology Results: Microbiology 10/06/17 17:19 Gastric Biopsy Helicobacter pylori Rapid Urease - Final Assessment and Plan (1) Normocytic anemia Current visit: Yes Status: Acute (2) Atrial fibrillation Current visit: Yes Status: Acute (3) GERD (gastroesophageal reflux disease) Current visit: Yes Status: Acute Assessment and Plan: Impression Acute blood loss anemia-improved post 2 units of packed red cells. Iron deficiency anemia Upper GI bleed secondary to gastric ulcers Mild pulmonary edema requiring diuresis 10/08/17 Sliding hiatal hernia Chronic anticoagulation for atrial fibrillation-aspirin and Eliquis are on hold Paroxysmal atrial fibrillation History of bladder cancer in remission Plan Weight trending up from 69.7 on admission to 75.2 kg today. Pt with wheezing, crackles, and new cough - CXR personally reviewed, shows mild pulm edema and b/ l effusions. Lasix 20 mg IV x1 ordered. K low at 3.5 - will replace orally. Hgb remains stable at 7.9; continue PPI and Carafate. No ASA/anticoagulants. D/W RN and with Dr. Toure. DVT Prophylaxis: SCD's GI Prophylaxis: Protonix Resuscitation Status: Full Code Hospital Course Summary Disclaimer: The visit summary below is not to be considered part of the above Progress Note. Hospital Course: 10/06/2017 Admission to inpatient status. Patient was transfused 2 units of blood for hgb of 5.6. Will obtain serial hemoglobins. Continue on IV PPI BID. NPO. Stool was heme positive. Dr. Garcia was consulted. EGD showed a sliding hiatal hernia and to gastric ulcers in the area of her hiatal hernia. Biopsies were obtained and are pending. H pylori testing is pending. Oral PPI and Carafate initiated. DC aspirin and Eliquis 10/07/17 Hemoglobin 7.9. Iron level was low - IV iron was administered and B12 was started for borderline low B-12 level. DC IV fluids. 10/08/17 Weight trending up from 69.7 on admission to 75.2 kg today. Pt with wheezing, crackles, and new cough - CXR shows mild pulm edema and b/l effusions. Lasix 20 mg IV x1 ordered. K low at 3.5 - will replace orally. Hgb remains stable at 7.9; continue PPI and Carafate. No ASA/anticoagulants. <Kaitlin Toure - Last Filed: 10/08/17 11:58> - Date 10/08/17 Objective Vital signs: Temperature 98.2 F 10/08/17 08:19 Pulse Rate 85 10/08/17 08:19 Respiratory Rate 18 10/08/17 08:19 Blood Pressure 148/65 H 10/08/17 08:19 Pulse Oximetry 92 10/08/17 08:19 Height/Weight/BMI: Height 1.57 m Weight 73.9 kg Body Mass Index 28.0 Results - Labs CBC & Chem 7: 10/08/17 04:26 10/08/17 04:26 Microbiology Results: Microbiology 10/06/17 17:19 Gastric Biopsy Helicobacter pylori Rapid Urease - Final Assessment and Plan (1) Normocytic anemia Current visit: Yes Status: Acute (2) Atrial fibrillation Current visit: Yes Status: Acute (3) GERD (gastroesophageal reflux disease) Current visit: Yes Status: Acute Assessment and Plan: 10/08/2017-I reviewed this chart, the patient history, and the HOT STRIP FINISHER's/PA's documented findings as above. We discussed and formulated the assessment and plan as above with the additions below.-Dr. Toure The patient was seen late this morning with her room. She was sitting up in a chair. She states she had a mild cough that was dry. She denies any rhinorrhea or sore throat. She does not feel like she has a cold. She denies any dyspnea. She denies chest pain or lightheadedness. She states she has been urinating frequently since receiving Lasix. She was not hungry for breakfast but plans to eat lunch. She denies any abdominal pain or nausea. On exam she is alert and oriented and in no acute distress. Chest reveals minimal basilar crackles, decreased breath sounds in the bases, no wheezes. Cardiovascular reveals a regular rate and rhythm. Abdomen is soft and nontender. Extremities are free of edema. She is wearing SCDs. Impression and plan It appears the patient had fluid overload with some pulmonary edema seen on chest x-ray. I have reviewed the chest x-ray and agree. She did receive IV fluids, 2 units of blood, and IV iron this hospitalization. Weight was up today. I did not listen to the patient earlier this morning but her lungs do not reveal any wheezing currently. Only minimal crackles. Acute blood loss anemia is stable. Patient tolerated IV iron yesterday. Possible discharge later today versus tomorrow if doing well. I did call the patient's son Tonya and gave him an update. Hospital Course Summary Disclaimer: The visit summary below is not to be considered part of the above Progress Note.
[2017-10-08] MEDS: FLECAINIDE 50 MG TABLET PO SCH ×2 (12:30→23:39)
[2017-10-08] MEDS: MIRTAZAPINE 15 MG TABLET PO SCH (21:00)
[2017-10-08] MEDS: SALINE FLUSH 10ml SYRINGE IVF PRN (23:39)
[2017-10-09] MEDS: PANTOPRAZOLE 40 MG TABLET PO SCH (06:23)
[2017-10-09] MEDS: SUCRALFATE 1gm/10ml ORAL LIQUID PO SCH ×2 (06:23→12:09)
[2017-10-09] MEDS: MULTI-VITAMIN + MINERAL TABLET PO SCH (08:43)
[2017-10-09] MEDS: MAGNESIUM OXIDE 400 MG TABLET PO SCH (08:43)
[2017-10-09 11:26] VITALS: BP 136/69; PULSE 92; RESP 16; TEMP 97.5; O2SAT 95
--- NOTE | 2017-10-09 11:37 | Discharge Summary ---
<EmmanuelMagedArcelia D - Last Filed: 10/09/17 11:34> Discharge Information Date of admission: 10/05/17 22:30 Anticipated date of discharge: 10/09/17 Attending Physician: Kaitlin Toure MD Primary care physician: Ankur Mary DO Consults: Consulting Provider: Power Garcia - Discharge Diagnosis (1) Gastric ulcer Status: Acute Acute blood loss anemia - improved post 2 units of packed red cells. Iron deficiency anemia Upper GI bleed secondary to gastric ulcers Mild pulmonary edema requiring IV diuresis 10/08/17 - improved Sliding hiatal hernia Chronic anticoagulation for atrial fibrillation - aspirin and Eliquis are on hold History of bladder cancer - in remission - Procedures Procedures: EKG on 10/05/17 showed NSR without acute findings, moderate intraventricular conduction delay, rate 87 PRBC transfusion x2 units on 10/06/17 IV Iron infusion on 10/07/17 DATE OF SERVICE: 10/06/2017 SURGEON: Power Garcia MD PROCEDURE: Esophagogastroduodenoscopy with biopsies from antrum of stomach for permanent pathology as well as for GEORGINA assay via cold biopsy technique. POSTOPERATIVE DIAGNOSIS: Hiatal hernia, Shankar/gastric ulcerations located at the level of the diaphragm. - Laboratory Labs: 10/09/17 03:53 10/09/17 03:53 - Radiology Radiology: Date of Exam: 10/08/17 PROCEDURE: XR chest 1V: Impression: Mild pulmonary edema with small effusions. - Pathology Gastric mucosa biopsies: mild chronic active gastritis with marked mucosal edema. Focal intestinal metaplasia. Reactive epithelial atypia. Negative for Helicobacter. History of Present Illness HPI: Ms. Graham is an 87 yo woman with h/o afib, HTN, GERD and PUD but no CAD, CVA or DM2. She present with progressive weakness over the last couple of weeks with CABAN and palpitation with activity. NO chest pain on abdominal pain. No recent medication changes. Clinic lab with anemia and sent to the ED. No stool changes. Never had endoscopy per son at the bedside who is an RN--PUD diagnosed previously by symptoms. No other NSAIDs noted. Objective Vital signs: Temperature 97.5 F 10/09/17 11:25 Pulse Rate 92 10/09/17 11:25 Respiratory Rate 16 10/09/17 11:25 Blood Pressure 136/69 10/09/17 11:25 Pulse Oximetry 95 10/09/17 11:25 Rhythm: Normal Sinus Rhythm, First Degree AV-Block Height/Weight/BMI: Height 1.57 m Weight 69.1 kg Body Mass Index 28.0 - Constitutional Present: no acute distress, well nourished, well developed - Routine HEENT Exam Head: Present: normocephalic Eye: Absent: conjunctival icterus, scleral injection ENT: Present: mucous membranes dry - Routine Respiratory Exam Present: CTA bilaterally - Routine Cardiovascular Exam Present: RRR, S1, S2 - Routine Abdominal Exam Present: soft, normoactive bowel sounds, non distended, non tender - Routine Extremities Exam Present: no edema. Absent: calf tenderness - Routine Musculoskeletal Exam Musculoskeletal: Present: normal gait, moving extremities well - Routine Skin Exam Present: dry, warm - Routine Neurological Exam Present: alert, oriented X3, normal speech - Routine Psychiatric Exam Present: normal affect, normal thought process, cooperative Hospital Course This is a general summary of the patient's hospital course. For more details refer to the complete medical record. Hospital course: 10/06/17: ADMISSION Transfused 2 units of blood for hgb of 5.6; started IV PPI BID, later converted to oral. Stool was heme positive. Dr. Garcia was consulted, and EGD was done. EGD showed a sliding hiatal hernia and to gastric ulcers in the area of her hiatal hernia. Biopsies and H. pylori were obtained and are pending. Carafate was started postop. ASA and Eliquis were discontinued. 10/07/17 Hemoglobin 7.9. Iron level was low - IV iron was administered and B12 was started for borderline low B-12 level. IV fluids were discontinued. 10/08/17 Weight trending up from 69.7 on admission to 75.2 kg today. Pt with wheezing, crackles, and new cough - CXR shows mild pulm edema and b/l effusions. Lasix 20 mg IV x1 ordered. K low at 3.5 - replaced orally. Hgb remains stable at 7.9 10/09/17: DISCHARGED HOME Pathology negative for H. Pylori. Will continue Protonix and Carafate slurry at CT. STOP ASA and Eliquis. Hgb improved to 8.3. Continue OTC iron/vit. C. Resp status improved, lungs clear and weight is down to baseline. She was asymptomatic, and ambulated well with a steady gait. K improved to 3.8. Had a few loose stools overnight. No blood/melena. Medically stable for discharge. Reviewed s/s of anemia and reasons to be re- evaluated (ie SOA, chest pain, dizziness, confusion, black/bloody stools, etc). Also d/w Tonya, pt's son who is an RN - he will be available this weekend to help her. Recommend f/u with Dr. Mary next week. Time spent with patient: discharge greater than 30 minutes GI Prophylaxis: Protonix Discharge Plan - Discharge Disposition Discharge Date: 10/09/17 Disposition: Discharged Home, Self-Care *Condition: Improved Reason For Visit (Visit label in EMR): Anemia - Discharge Medications *Discharge Medications: New Pantoprazole Tab [Protonix Tab] 40 mg PO ACB #30 tab Cyanocobalamin (Vitamin B-12) [Vitamin B-12] 1,000 mcg PO DAILY #1 bottle Ascorbate Calcium [Vitamin C] 500 mg PO WB #30 tab Sucralfate Oral Liq [Carafate Slurry] 1 gm PO ACHS #1 bottle Continue Calcium Carbonate/Vitamin D3 (Caltrate 600 + D Chewable Tab) 1 each PO DAILY #0 Magnesium Oxide [Magnesium] 2 tab PO BID Folic Acid/Multivit-Min/Lutein [Centrum Silver Chewable Tablet] 1 tab PO DAILY #0 Mirtazapine 1 tab PO HS #30 Ferrous Sulfate [Iron] 1 tab PO DAILY #0 flecainide 50 mg tablet 50 mg PO Q12H Discontinued Aspirin 81 mg PO DAILY #0 raNITIdine HCl [Ranitidine HCl] 1 tab PO BID #60 apixaban (Eliquis)5 mg tablet 5 mg PO BID sucralfate 1 gram tablet 1 g PO HS #90 tab - Discharge Packet/Instructions *Diet: Regular diet, soft foods. *Activity: No restrictions. *Pain Management/Treatment: Tylenol if needed. *Wound Care: N/A Additional Instructions: Your biopsy was negative for the bacterial infection, H. Pylori. *Expected Signs/Symptoms: You may be weak and tired from your hospitalization. This should improve over the next several days. *Notify Physician if: Fever, chills, shortness of breath or chest pain, dizziness or feeling like you might pass out, confusion, weakness, black or bloody stools, vomiting, or any new concerns. If you develop any of these symptoms and they are severe, call 911. *During Business Hours Contact: Dr. Mary's office. *After Business Hours Contact: Contact [facility] and ask for the on- call provider for Dr. Mary's office. *Pending Lab/Results: No Pending Lab - Referrals/Follow Up *Referrals/Follow Up: Ankur Mary DO [Family Provider] - 1 Week Power Garcia MD [Physician] - - Patient Handouts Patient Handouts: Anemia (GEN) - Dismissal Complete Discharge Instructions are:: Complete <James Bahena - Last Filed: 10/09/17 12:36> Discharge Information Date of admission: 10/05/17 22:30 Attending Physician: Kaitlin Toure MD Primary care physician: Ankur Mary DO Consults: 10/06/17 09:48 Physician Consult [CONS] Routine Consulting Provider: Power Garcia Reason For Exam: probable upper gi bleed Ordering Provider has Notified Plastic Outfitter: Yes - Discharge Diagnosis (1) Gastric ulcer Status: Acute - Laboratory Labs: 10/09/17 03:53 10/09/17 03:53 - Microbiology Microbiology 10/06/17 17:19 Gastric Biopsy Helicobacter pylori Rapid Urease - Final Objective Vital signs: Temperature 97.5 F 10/09/17 11:25 Pulse Rate 92 10/09/17 11:25 Respiratory Rate 16 10/09/17 11:25 Blood Pressure 136/69 10/09/17 11:25 Pulse Oximetry 95 10/09/17 11:25 Height/Weight/BMI: Height 1.57 m Weight 69.1 kg Body Mass Index 28.0 Hospital Course This is a general summary of the patient's hospital course. For more details refer to the complete medical record. Attestation Narriative - Attestation Attestation Narrative: 10/09/17 12:33 I have independently interviewed and examined patient prior to discharge. Chart reviewed. Case discussed with CM and my ICT ANALYST. Care plan developed with my supervision; agree with above. Doing well today. Breathing much better as compared to yesterday. Not feeling dizzy or unsteady when up. No ab pain or nausea. Eating well. Lungs: decreased, no distress CV: regular sounding. MSE: awake alert appropriate Plan: Will discharge to home. See orders for details. Vit B12 1000mcg oral daily as B12 level low normal. Medically stable for discharge to home. Time spent with patient care and discharge greater than 30 minutes.
[2017-10-09] MEDS: FLECAINIDE 50 MG TABLET PO SCH (12:09)
== END 2017-10-09 16:10 | disposition home or self-care (01) | DRG 377 ==
LOC: ED 21:17 → MED 22:30
PROVIDERS: ADMIT Hospitalist; ATTEND Internal Medicine
PROC: END.EGD (2017-10-06 16:30)